=== PATIENT | male | born 1975 | race Caucasian/White ===

== ENCOUNTER 2024-06-05 14:06 | Emergency (ER) | payer MEDICAID, SELFPAY ==
[2024-06-05 14:09] VITALS: BP 130/77; PULSE 64; RESP 15; TEMP 36.3; O2SAT 98
--- NOTE | 2024-06-05 14:30 | DI.CT_ITS ---
Exam(s) CT LUMBAR SPINE WO EXAM: CT LUMBAR SPINE WO CLINICAL HISTORY: L4 right sided chronic spine pain. TECHNIQUE: Imaging Protocol: Axial computed tomography images with coronal and sagittal reformatted images were created and reviewed COMPARISON: There are no plain films available time of this interpretation. FINDINGS: Bones: There are no acute fractures, listhesis, nor pars defects. There are no lytic nor blastic oss eous lesions evident.There is a mild deformity of the left transverse process of L3 which may be rela kenny to healed fracture. Other transverse processes appear unremarkable. No disc space narrowing. No significant facet arthropathy. INDIVIDUAL LEVELS: T12-L1:No disc herniation nor canal stenosis. Facet joints unremarkable. No foraminal stenosis. L1-2: No disc herniation nor canal stenosis. Facet joints unremarkable. No foraminal stenosis. L2-3: No disc herniation nor canal stenosis. Facet joints unremarkable. There is mild central shila l stenosis related to mild annular bulging and short AP dimensions of the pedicles. No significant f oraminal stenosis. L3-4: No disc herniation nor canal stenosis. Facet joints unremarkable. Central canal dimensions ar e lower normal. No foraminal stenosis. L4-5: Normal disc height. No disc herniation or central canal stenosis. No facet arthropathy. No significant foraminal stenosis. L5-S1: No disc herniation or canal stenosis. Facet joints unremarkable. No central canal stenosis. No foraminal stenosis. The visualized sacroiliac joints and sacrum appear unremarkable. PARASPINAL SOFT TISSUES: Visualized paraspinal tissues appear unremarkable. IMPRESSION: 1. No evidence of disc herniation nor severe spinal canal stenosis nor significant foraminal stenosis . No facet arthropathy. RADIATION DOSE DELIVERED: 542.94mGy.cm Total DLP DATA REPOSITORY: All CT scans at this facility are submitted to the National Radiology Data Registry (NRDR) Dose Index Registry (DIR) with the [employer] (A[employer]). RADIATION OPTIMIZATION: All CT scans at this facility use at least one of these dose optimization te chniques: automated exposure control; mA and/or kV adjustment per patient size (includes targeted exa ms where dose is matched to clinical indication); or iterative reconstruction.
[2024-06-05] MEDS: Acetaminophen 500 MG TAB 1000 MG PO (14:43)
[2024-06-05] MEDS: predniSONE 20 MG TAB 60 MG PO (14:43)
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
--- NOTE | 2024-06-05 16:39 | DI.VRAD_ITS ---
PROCEDURE INFORMATION: Exam: CT Lumbar Spine Without Contrast Exam date and time: 06/05/2024 3:10 PM Age: 49 years old Clinical indication: Other: L4 right sided chronic spine pain TECHNIQUE: Imaging protocol: Computed tomography of the lumbar spine without contrast. COMPARISON: No relevant prior studies available. FINDINGS: Bones/joints: Vertebral body height well preserved. Spinal alignment is anatomic. There is mild broad-based disc bulge at the L1-L2 level. Similar changes seen at the L2-L3 level. The pedicles appear congenitally shortened, anatomic variant. There is mild stenosis at L2-L3 and L3-L4. Mild disc bulge noted L3-L4. There is mild foraminal narrowing at the L2-L3 and L3-L4 levels. Spleen: Splenic calcification, probable old granulomatous change. Vasculature: Mild atherosclerotic change noted in the vasculature. Soft tissues: Unremarkable. IMPRESSION: Congenitally diminutive pedicles. Minimal spondylosis with mild stenosis L2-L3 and L3-L4. Dictated and Authenticated by: Cary Araya MD. Ordering:TANMAY Renteria MD
== END 2024-06-05 18:04 | disposition home or self-care (01) ==
PROVIDERS: Emergency Provider Student in an Organized Health Care Education/Training Program
DX: M54.50 Low back pain, unspecified (principal); G20.C Parkinsonism, unspecified; M47.816 Spondylosis without myelopathy or radiculopathy, lumbar region
CPT/HCPCS: 99284; 72131; J7512

== ENCOUNTER 2024-09-29 17:07 | Emergency (ER) | payer MEDICAID, SELFPAY ==
[2024-09-29 17:08] VITALS: BP 140/71; PULSE 108; RESP 20; TEMP 39.2; O2SAT 95
--- NOTE | 2024-09-29 17:15 | DI.RAD_ITS ---
Exam(s) XR CHEST 2V PA LATERAL EXAM: XR CHEST 2V PA LATERAL CLINICAL HISTORY: fever and cough. TECHNIQUE: 2D digital imaging was performed. COMPARISON: No exams were available for comparison FINDINGS: 2 views: Right anterior chest wall pacer device with leads heading cephalad towards the brain. Heart size is normal. The mediastinum is not widened. Lungs are clear. No infiltrates nor pleural effusions. IMPRESSION: No acute pulmonary findings. DATA REPOSITORY: RADIATION DOSE DELIVERED:
--- NOTE | 2024-09-29 17:21 | ED.GENADUL_ITS ---
Discharge Plan Disposition Patient Disposition: Home Condition: Stable Discharge Details Clinical Impression: Fever, Cough, Influenza A Primary Care Provider: None,None ED Provider: Juan Gonzalez Home Meds and New Rx's Prescriptions: New oseltamivir 75 mg capsule 75 mg PO Q12H 5 Days Qty: 9 0RF prednisone 20 mg tablet 60 mg PO DAILY 4 Days Qty: 12 0RF Continued carbidopa-levodopa 25-100 mg tablet 1 tab PO 12XD PRN Patient Comments: TAKE 1 AND 1/2 TABLETS BY MOUTH EVERY 1 TO 1 AND 1/2 HOURS NEEDED FOR PARKINSONS Rx Instructions: 1 tab orally; albuterol sulfate [Ventolin HFA] 90 mcg/actuation HFA aerosol inhaler 2 puff INHALATION Q4H PRN Patient Comments: INHALE 2 PUFFS BY MOUTH EVERY 4-6 HOURS NEEDED lidocaine [Lidoderm] 5 % adhesive patch,medicated 1 patch Topical Q24H Qty: 15 0RF Discharge Instructions Additional Instructions: You are positive for the flu. Take the steroid and oseltamivir as prescribed. You can continue to use your inhaler as needed. If you are not improving within a week follow-up with either your primary care provider or express care. If you feel more ill or have severe worsening shortness of breath return to the emergency department for reevaluation HPI General Mode of arrival: ambulatory . Date/Time Provider Initiated Documentation: 09/29/24 17:14 . Limitations to Documentation: no limitations . Information obtained by: patient . History of Present Illness 49 year old M presents to the emergency department with the chief complaint of fever, cough, dyspnea, described as moderate, Patient started experiencing this day(s) (1) and it has been constant. No relieving factors improve symptom(s), No exacerbating factors reported . Patient notes denies nausea/vomiting. Patient did receive the following treatments prior to arrival, none Related Data Home Medications ?Medication ?Instructions ?Recorded ?Confirmed albuterol sulfate 90 mcg/actuation 2 puff inhalation Q4H PRN 06/05/24 09/29/24 aerosol inhaler (Ventolin HFA) carbidopa 25 mg-levodopa 100 mg 1 tab PO 12XD PRN 06/05/24 09/29/24 tablet lidocaine 5 % topical patch 1 patch topical Q24H #15 ea 06/05/24 09/29/24 (Lidoderm) oseltamivir 75 mg capsule 75 mg PO Q12H 5 days #9 caps 09/29/24 prednisone 20 mg tablet 60 mg (3 x 20 mg) PO DAILY 4 days 09/29/24 #12 tabs Previous Rx's ?Medication ?Instructions ?Recorded lidocaine 5 % topical patch 1 patch topical Q24H #15 ea 06/05/24 (Lidoderm) oseltamivir 75 mg capsule 75 mg PO Q12H 5 days #9 caps 09/29/24 prednisone 20 mg tablet 60 mg (3 x 20 mg) PO DAILY 4 days 09/29/24 #12 tabs Allergies Allergy/AdvReac Type Severity Reaction Status Date / Time phenobarbital Allergy Severe Other (See Unverified 09/29/24 17:12 Comment) General Stated Complaint: RespSymp MARILU: 3 Review of Systems All systems reviewed & are unremarkable except as noted in HPI and below Constitutional Constitutional: Reports chills, Reports fever(s) and Denies weakness Cardiovascular Cardiovascular: Denies chest pain and Reports dyspnea Respiratory Respiratory: Reports cough and Reports dyspnea Gastrointestinal Gastrointestinal: Denies abdominal pain, Denies nausea and Denies vomiting Neurologic Neurologic: Denies weakness Exam Const General: no acute distress Orientation: alert [facility] Head: normal to inspection Ears: external ears normal General nose exam: external nose normal Mouth: moist mucous membranes Eyes General: appearance normal, both eyes and all related structures Neck Neck: normal visual inspection Resp Auscultation: rhonchi and wheezes Cardio Jugular venous pressure: no JVD Rate: regular rate Heart Sounds: no murmurs GI Palpation: soft and nontender Skin General skin exam: no rashes or lesions noted Neuro General: patient alert and patient oriented x3 Extrem General: normal to inspection Psych Mental Status: mental status grossly normal Course Vital Signs Vital signs: Vital Signs Temperature 39.2 C H 09/29/24 17:08 Pulse 108 H 09/29/24 17:08 Respiratory Rate 09/29/24 17:08 Blood Pressure 140/71 09/29/24 17:08 Pulse Oximetry 95 09/29/24 17:08 Temperature 39.2 C H 09/29/24 17:08 Temperature Source Oral 09/29/24 17:08 Pulse 108 H 09/29/24 17:08 Respiratory Rate 20 09/29/24 17:08 Blood Pressure 140/71 09/29/24 17:08 Pulse Oximetry 95 09/29/24 17:08 Oxygen Delivery Method Room Air 09/29/24 17:08 Oxygen Flow Rate 0 09/29/24 17:08 Medical Decision Making 49-year-old male with a history of Parkinson's and chronic smoker comes in with chief complaint of 1 day of productive cough and fevers. States he also has some shortness of breath, denies any chest pressure. Denies any IV drug use or recent travel. He is speaking full sentences on exam with an intermittent harsh sounding cough. He has apical wheezing bilaterally and rhonchi at the bases bilaterally. He has noted to be febrile to 39.2 on arrival. He has no JVD or leg swelling or calf tenderness. Given his symptoms I suspect a respiratory infection, will check a CBC CMP and procalcitonin, given his lung exam findings as chronic smoking I will treat him with a DuoNeb and prednisone and also given Tylenol and ibuprofen. Will also obtain chest x-ray to evaluate for pneumonia and also obtain a Fluvid. He denies any IV drug use and has no murmurs or other findings to suggest endocarditis. X-ray and blood work shows no concerning findings other than low magnesium which was repleted orally. He is positive for the flu. Given his symptoms started yesterday we will start him on oseltamavir. He is stable for discharge and advised to follow-up with his PCP if not improving within a week and return precautions given Differential Diagnosis Differential Diagnosis: COVID, flu, pneumonia Lab Data Lab results reviewed: Yes I reviewed the patient's lab results. Quality:[facility] Health Related Social Needs: No Data to Display PFSH All Active Problems (Updated 09/29/24 @ 19:15 by Juan Gonzalez MD) Influenza A (Acute) Cough (Acute) Fever (Acute) Social History Smoking risk assessment performed?: No
[2024-09-29] MEDS: Acetaminophen 500 MG TAB 1000 MG PO (17:32)
[2024-09-29] MEDS: Albuterol/Ipratropium 3 ML UPD VIAL UPD (17:32)
[2024-09-29] MEDS: Ibuprofen 600 MG TAB PO (17:33)
[2024-09-29] MEDS: predniSONE 20 MG TAB 60 MG PO (17:33)
[2024-09-29 17:44] LABS: Abs Immature Grans 0.03 10^3/uL (0.0-0.06); Absolute Basophil Count 0.03 10^3/uL (0.0-0.2); Absolute Monocyte Count 0.57 10^3/uL (0.1-0.8); Basophils % 0.4 %; HCT 38.8 % (40.0-50.0); HGB 13.4 g/dL (13.5-17.5); Immature Grans % 0.4 %; Lymphocytes % 8.5 %; MCH 30.4 pg (27.0-33.0); MCHC 34.5 % (32.0-36.0); MCV 88 fL (80-95); MPV 9.5 fL (8.0-11.0); Monocytes % 8.1 %; Neutrophils % 82.6 %; Platelet Count 179 10^3/uL (130-400); RBC 4.41 10^6/uL (4.36-5.78); RDW 12.3 % (11.8-14.1); RDW-SD 40.1 fL; WBC 7.03 10^3/uL (4.4-10.8)
[2024-09-29 17:54] LABS: BE (Venous) -1 mmol/L (-2-3); HCO3 (Venous) 24 mmol/L (23-28); O2 Sat (Venous) 76 %; TCO2 (Venous) 21 mmol/L (24-29); pCO2 (Venous) 37 mmHg (41-51); pH (Venous) 7.42 (7.31-7.41); pO2 (Venous) 38 mmHg
[2024-09-29 18:04] LABS: ALT 10 U/L (16-63); AST 13 U/L (15-37); Albumin 3.8 g/dL (3.4-5.0); Alkaline Phosphatase 68 U/L (46-116); Anion Gap 8.9 mmol/L (3-11); BUN 12 mg/dL (7-18); Bilirubin, Total 0.75 mg/dL (0.2-1.0); CO2 23.1 mmol/L (21.0-32.0); CREATININE 0.8 mg/dL (0.70-1.30); Calcium 8.7 mg/dL (8.5-10.1); Chloride 104 mmol/L (98-107); Estimated GFR 109.85 (mL/min/1.73m2); Glucose 105 mg/dL (74-106); Magnesium 1.3 mg/dL (1.8-2.4); Potassium 3.6 mmol/L (3.5-5.1); Sodium 136 mmol/L (136-145); Total Protein 6.9 g/dL (6.4-8.2)
[2024-09-29 18:16] LABS: Procalcitonin < 0.10 ng/mL
[2024-09-29] MEDS: Ondansetron O.D.T. 4 MG TABEF PO (18:30)
[2024-09-29] MEDS: Magnesium Oxide 400 MG TAB 800 MG PO (18:30)
[2024-09-29 18:35] VITALS: BP 119/59; PULSE 87; RESP 20; TEMP 37.5; O2SAT 93
[2024-09-29 19:02] LABS: COVID-19 PCR Negative (Negative); Influenza A PCR Positive (Negative); Influenza B PCR Negative (Negative); RSV PCR Negative (Negative)
[2024-09-29 19:03] LABS: Source Nasopharynx
[2024-09-29] MEDS: Oseltamivir 75 MG CAP PO (19:38)
[2024-09-29 19:44] VITALS: BP 115/82; PULSE 102; RESP 18; TEMP 37.5; O2SAT 94
== END 2024-09-29 19:44 | disposition home or self-care (01) ==
PROVIDERS: Emergency Provider Emergency Medicine
DX: J10.1 Influenza due to other identified influenza virus with other respiratory manifestations (principal); E83.42 Hypomagnesemia; F17.200 Nicotine dependence, unspecified, uncomplicated; Z95.0 Presence of cardiac pacemaker
CPT/HCPCS: 80053; 82805; 84145; 87637; 94640; 99284; 71046; 83735; 85025; J7512; J7620

== ENCOUNTER 2024-10-06 00:37 | Emergency (ER) | payer MEDICAID, SELFPAY ==
[2024-10-06 00:37] VITALS: BP 104/60; PULSE 82; RESP 18; TEMP 36.8; O2SAT 98
[2024-10-06 00:45] VITALS: PULSE 73; RESP 18; O2SAT 97
--- NOTE | 2024-10-06 00:56 | W.ED.GENAD ---
Discharge Plan Disposition Patient Disposition: Home Condition: Good Discharge Details Clinical Impression: Pneumonia of both lower lobes Primary Care Provider: None,None ED Provider: Saji Davis and New Rx's Prescriptions: New benzonatate 100 mg capsule 100 mg PO TID PRN (Reason: cough) Qty: 15 0RF azithromycin 250 mg tablet 250 mg PO DAILY Qty: 4 0RF cefpodoxime 200 mg tablet 200 mg PO BID Qty: 14 0RF Rx Instructions: must administer with a meal/food ibuprofen 600 mg tablet 600 mg PO TID PRN (Reason: fever or pain) Qty: 15 0RF Continued carbidopa-levodopa 25-100 mg tablet 1 tab PO 12XD PRN Patient Comments: TAKE 1 AND 1/2 TABLETS BY MOUTH EVERY 1 TO 1 AND 1/2 HOURS NEEDED FOR PARKINSONS Rx Instructions: 1 tab orally; albuterol sulfate [Ventolin HFA] 90 mcg/actuation HFA aerosol inhaler 2 puff INHALATION Q4H PRN Patient Comments: INHALE 2 PUFFS BY MOUTH EVERY 4-6 HOURS NEEDED lidocaine [Lidoderm] 5 % adhesive patch,medicated 1 patch Topical Q24H Qty: 15 0RF Discontinued oseltamivir 75 mg capsule 75 mg PO BID Patient Comments: TAKE ONE CAPSULE BY MOUTH EVERY 12 HOURS FOR 5 DAYS Discharge Instructions Instructions: Pneumonia, Adult ED Additional Instructions: You were seen for continued cough and trouble breathing despite finishing your Tamiflu. Chest x-ray shows evidence of bilateral pneumonia in the bases. Your laboratory studies, vital signs, exam otherwise are reassuring. 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 You should follow-up with your primary care physician next week for recheck. Return to ED for any increasing shortness of breath, chest pain, lethargy or neurologic change, persistent vomiting, other concerns. HPI General Mode of arrival: EMS. Date/Time Provider Initiated Documentation: 10/06/24 00:50. Limitations to Documentation: no limitations. Information obtained by: patient and RN notes reviewed. HPI Narrative: Patient presents to ED by ambulance with complaint of chest pain and shortness of breath. Patient diagnosed with influenza and has been taking Tamiflu. Denies having any fevers recently. Is having anterior chest pain and shortness of breath with inability to catch his breath due to coughing fits. He denies having shortness of breath at rest. He denies having chest pain at rest. Symptoms happen when he begins coughing and then he cannot stop which makes it worse. Denies shortness of breath with lying flat to me, though stated this to nursing. He is eating and drinking normally. He is still smoking. Denies any back pain. Has not taking anything at home for cough or pain because he reports not having anything there to take. Related Data Home Medications ?Medication ?Instructions ?Recorded ?Confirmed albuterol sulfate 90 mcg/actuation 2 puff inhalation Q4H PRN 06/05/24 10/06/24 aerosol inhaler (Ventolin HFA) carbidopa 25 mg-levodopa 100 mg 1 tab PO 12XD PRN 06/05/24 10/06/24 tablet lidocaine 5 % topical patch 1 patch topical Q24H #15 ea 06/05/24 10/06/24 (Lidoderm) azithromycin 250 mg tablet 250 mg PO DAILY #4 tabs 10/06/24 benzonatate 100 mg capsule 100 mg PO TID PRN cough #15 caps 10/06/24 cefpodoxime 200 mg tablet 200 mg PO BID #14 tabs 10/06/24 ibuprofen 600 mg tablet 600 mg PO TID PRN fever or pain 10/06/24 #15 tabs Previous Rx's ?Medication ?Instructions ?Recorded lidocaine 5 % topical patch 1 patch topical Q24H #15 ea 06/05/24 (Lidoderm) azithromycin 250 mg tablet 250 mg PO DAILY #4 tabs 10/06/24 benzonatate 100 mg capsule 100 mg PO TID PRN cough #15 caps 10/06/24 cefpodoxime 200 mg tablet 200 mg PO BID #14 tabs 10/06/24 ibuprofen 600 mg tablet 600 mg PO TID PRN fever or pain 10/06/24 #15 tabs Allergies Allergy/AdvReac Type Severity Reaction Status Date / Time phenobarbital Allergy Severe Other (See Verified 10/06/24 00:43 Comment) General Stated Complaint: RespSymp MARILU: 3 Exam Narrative Exam Narrative: Const: WDWN male in NAD. VS per triage. HEENT: NC/AT. Normal facial exam. Neck: Supple. Trachea midline. Lungs: Normal respiratory effort. Lungs are clear. Chest wall tenderness (mild) parasternal bilateral Cor: RRR without murmur. Good radial pulses. Neuro: A+O x 3. Normal speech, mentation. Cranial nerves II - XII grossly intact. No gross motor or sensory deficit. Tremor bilateral upper extremities Course Vital Signs Vital signs: Vital Signs Temperature 98.3 F 10/06/24 00:37 Pulse 82 10/06/24 00:37 Respiratory Rate 18 10/06/24 00:37 Blood Pressure 104/60 10/06/24 00:37 Pulse Oximetry 98 10/06/24 00:37 Temperature 98.3 F 10/06/24 00:37 Pulse 73 10/06/24 00:45 Respiratory Rate 18 10/06/24 00:45 Respiratory Effort Short of Breath 10/06/24 00:45 Respiratory Depth Normal 10/06/24 00:45 Blood Pressure 104/60 10/06/24 00:37 Blood Pressure Position Sitting 10/06/24 00:45 Pulse Oximetry 97 10/06/24 00:45 Oxygen Delivery Method Room Air 10/06/24 00:45 Oxygen Flow Rate 0 10/06/24 00:37 Pain Level 97 10/06/24 00:45 Medical Decision Making Patient here on the and diagnosed with influenza. Reports no recent fever. Complaining of coughing fits which is causing shortness of breath, inability to catch his breath, anterior chest pain. He is a smoker and continues to smoke. His vital signs are normal. Saturations are normal. Lungs are clear to auscultation on my exam. Has not taken anything [id number] for his symptoms. Denies having chest pain or shortness of breath if he is not having a coughing fit. Will give him Tessalon and ketorolac for his symptoms. Will obtain a chest x-ray to rule out a superimposed pneumonia. Patient does report improvement after medications. Cough is less and pain is definitely better. Chest x-ray per my read as well as preliminary radiology read with bibasilar infiltrates. Though his vital signs and saturations look good elected to place IV and check laboratory studies as well as give a dose of IV ceftriaxone and oral azithromycin. His labs show minor clinically insignificant abnormalities. Potassium low at 3.3 and replenished. Otherwise white count, hemoglobin, kidney function look good. I think he has therefore stable for discharge home on oral antibiotics to include continued azithromycin and cefpodoxime. Will also provide prescription for benzonatate. Instructed to follow-up with primary care this coming week for recheck. Return precautions provided. Imaging Data Radiologic Study: Attestation: I personally reviewed and interpreted this imaging study as follows: Imaging: X-Ray My impression: Chest x-ray with bibasilar infiltrates Lab Data Lab results reviewed: Yes I reviewed the patient's lab results. Lab results narrative: see MDM PFS All Active Problems (Updated 10/06/24 @ 03:12 by Saji Davis MD) Pneumonia of both lower lobes (Acute) Influenza A (Acute) Cough (Acute) Fever (Acute) Medical History (Updated 10/06/24 @ 03:12 by Saji Davis MD) Parkinson's disease Surgical History (Updated 10/06/24 @ 03:11 by Saji Davis MD) S/P deep brain stimulator placement Social History Smoking/Tobacco Use Status: Current every day Tobacco Type: cigarettes Smoking risk assessment performed?: Yes Alcohol Intake: never Substance use type: does not use
[2024-10-06] MEDS: Ketorolac 30 MG/ML VIAL IM (01:01)
[2024-10-06] MEDS: Benzonatate 100 MG CAP PO (01:01)
--- NOTE | 2024-10-06 01:43 | DI.RAD_ITS ---
Exam(s) XR CHEST 2V PA LATERAL EXAM: XR CHEST 2V PA LATERAL CLINICAL HISTORY: cough, CP/SOB TECHNIQUE: 2D digital imaging was performed. Two views. COMPARISON: CR XR CHEST 2V PA LATERAL from 09/29/2024 FINDINGS: Exam is somewhat limited by stimulator lead battery pack overlying the right mid lung field. HEART: Normal size. Aorta: Not dilated. PULMONARY VASCULATURE: Normal. MEDIASTINUM: Unremarkable. LUNGS: Bibasilar infiltrates, left greater than right. Lingular infiltrate is the most stents. PLEURAL SPACE: No pleural effusion or pneumothorax. BONE:Unremarkable for age. SOFT TISSUES: Unremarkable. IMPRESSION: Bibasilar pneumonia, left greater than right. DATA REPOSITORY: RADIATION DOSE DELIVERED:
--- NOTE | 2024-10-06 02:26 | DI.VRAD_ITS ---
PROCEDURE INFORMATION: Exam: XR Chest Exam date and time: 10/06/2024 1:35 AM Age: 49 years old Clinical indication: Cough and shortness of breath; Chest pressure; Prior surgery; Surgery date: 6+ months; Surgery type: Neruo stim; Chest pain, cough, SOB flu a+ TECHNIQUE: Imaging protocol: Radiologic exam of the chest. Views: 2 views. COMPARISON: CR XR CHEST 2V PA LATERAL 09/29/2024 5:59 PM FINDINGS: Tubes, catheters and devices: Stimulator lead battery pack overlies the right mid lung zone. Lead score cephalad in the right neck. Lungs: Mild peribronchial thickening bilaterally. Patchy bilateral lower lobe infiltrates , left side more than right. Pleural spaces: Unremarkable. No pleural effusion. No pneumothorax. Heart/Mediastinum: Unremarkable. No cardiomegaly. Bones/joints: Unremarkable. IMPRESSION: Bibasilar pneumonia , left side more than right. Dictated and Authenticated by: Lilian Durán MD. Orderin Ryan Lennon MD
[2024-10-06] MEDS: cefTRIAXone 1 GM/50 ML BAG IVPB (02:28)
[2024-10-06] MEDS: Azithromycin 250 MG TAB 500 MG PO (02:29)
[2024-10-06 02:32] LABS: Abs Immature Grans 0.01 10^3/uL (0.0-0.06); HCT 39.9 % (40.0-50.0); HGB 14.2 g/dL (13.5-17.5); MCH 30.5 pg (27.0-33.0); MCHC 35.6 % (32.0-36.0); MCV 86 fL (80-95); MPV 9.8 fL (8.0-11.0); Platelet Count 173 10^3/uL (130-400); RBC 4.66 10^6/uL (4.36-5.78); RDW 11.9 % (11.8-14.1); RDW-SD 37.1 fL; WBC 5.14 10^3/uL (4.4-10.8)
[2024-10-06 02:33] LABS: ALT 14 U/L (16-63); AST 22 U/L (15-37); Albumin 3.1 g/dL (3.4-5.0); Alkaline Phosphatase 64 U/L (46-116); Anion Gap 9.3 mmol/L (3-11); BUN 17 mg/dL (7-18); Bilirubin, Total 1.07 mg/dL (0.2-1.0); CO2 29.7 mmol/L (21.0-32.0); CREATININE 0.7 mg/dL (0.70-1.30); Calcium 8.4 mg/dL (8.5-10.1); Chloride 102 mmol/L (98-107); Estimated GFR 114.37 (mL/min/1.73m2); Glucose 99 mg/dL (74-106); Potassium 3.3 mmol/L (3.5-5.1); Sodium 141 mmol/L (136-145); Total Protein 6.3 g/dL (6.4-8.2)
[2024-10-06 02:41] LABS: Absolute Monocyte Count 0.36 10^3/uL (0.1-0.8); Absolute Neutrophil Count 2.98 10^3/uL (1.2-6.7); Atypical Lymphocytes % 5 %; Diff Comment Manual Differential; RBC Morphology Normal
[2024-10-06] MEDS: Potassium Chloride 20 MEQ TABCR 40 MEQ PO (03:17)
[2024-10-06 03:24] VITALS: BP 110/68; PULSE 88; RESP 18; O2SAT 96
== END 2024-10-06 03:25 | disposition home or self-care (01) ==
PROVIDERS: Emergency Provider Emergency Medicine
DX: J18.9 Pneumonia, unspecified organism (principal); G20.A1 Parkinson's disease without dyskinesia, without mention of fluctuations; F17.210 Nicotine dependence, cigarettes, uncomplicated; Z96.82 Presence of neurostimulator; Z79.899 Other long term (current) drug therapy
CPT/HCPCS: 36415; 80053; 96365; 96372; 99284; 71046; 85025; J0696; J1885

== ENCOUNTER 2025-02-08 10:35 | Emergency (ER) | payer MEDICAID, SELFPAY ==
[2025-02-08 10:39] VITALS: BP 103/73; PULSE 92; RESP 16; TEMP 36.9; O2SAT 93
--- NOTE | 2025-02-08 11:06 | ED.GENADUL_ITS ---
Discharge Plan Disposition Patient Disposition: Home Condition: Good Discharge Details Clinical Impression: Fracture of scaphoid bone of wrist Primary Care Provider: None,None ED Provider: Jennifer Rock Home Meds and New Rx's Prescriptions: Continued carbidopa-levodopa 25-100 mg tablet 1 tab PO 12XD PRN Patient Comments: TAKE 1 AND 1/2 TABLETS BY MOUTH EVERY 1 TO 1 AND 1/2 HOURS NEEDED FOR PARKINSONS Rx Instructions: 1 tab orally; albuterol sulfate [Ventolin HFA] 90 mcg/actuation HFA aerosol inhaler 2 puff INHALATION Q4H PRN Patient Comments: INHALE 2 PUFFS BY MOUTH EVERY 4-6 HOURS NEEDED lidocaine [Lidoderm] 5 % adhesive patch,medicated 1 patch Topical Q24H Qty: 15 0RF ibuprofen 600 mg tablet 600 mg PO TID PRN (Reason: fever or pain) Qty: 15 0RF Discharge Instructions Instructions: Forearm and Wrist Fractures ED Additional Instructions: As we discussed, you did suffer a fracture of your left scaphoid bone. This is concerning as this bone has a limited blood supply so the splint that we are applying less staying on until you are reevaluated by orthopedics. As we discussed we are placing you in a removable one so that you may wash it if you need to but I do encourage that you reapply this is soon as possible. You will need follow-up with orthopedics, please call to schedule follow-up appointment, number listed below. If you develop any new or worsening symptoms, please seek care urgently once again. Referrals: Pedro Luis Garner MD [ [facility] STAFF PHYSICIAN, Orthopaedic Surgical] Discharge Data Discharge Date/Time-TO BE ENTERED AT DEPARTURE: 02/08/25 13:32 [facility] General Date/Time Provider Initiated Documentation: 02/08/25 10:42 . Limitations to Documentation: no limitations . Information obtained by: patient and RN notes reviewed . History of Present Illness 49 year old M presents to the emergency department with the chief complaint of bilateral wrist pain, more on the left than right, after fall, described as moderate, Quality is described as aching, and is localized to the left, right and upper extremity. Patient reports no radiation. Patient started experiencing this day(s) (1 fell last night) and it has been constant. Immobilization improves symptom(s), Movement worsens symptoms . Patient notes no other symptoms.. Patient did receive the following treatments prior to arrival, none Related Data Home Medications ?Medication ?Instructions ?Recorded ?Confirmed albuterol sulfate 90 mcg/actuation 2 puff inhalation Q 4H PRN 06/05/24 02/09/25 aerosol inhaler (Ventolin HFA) carbidopa 25 mg-levodopa 100 mg 1 tab PO 12XD PRN 10/03/0202/09/25 tablet lidocaine 5 % topical patch 1 patch topical Q24H #15 e a 06/05/24 02/09/25 (Lidoderm) ibuprofen 600 mg tablet 600 mg PO TID PRN fever or p ain 10/06/24 02/09/25 #15 tabs Previous Rx's ?Medication ?Instructions ?Recorded lidocaine 5 % topical patch 1 patch topical Q24H #15 e a 06/05/24 (Lidoderm) ibuprofen 600 mg tablet 600 mg PO TID PRN fever or p ain 10/06/24 #15 tabs Allergies Allergy/AdvReac Type Severity Reaction Status Date / Time phenobarbital Allergy Severe Other (See Verified 02/09/25 00:16 Comment) General Stated Complaint: Fall/Non TraumaCriteria MARILU: 3 Review of Systems Constitutional Constitutional: Reports as per HPI, Denies fever(s), Denies headache(s) and Denies weakness ENT Ears, Nose, Mouth, and Throat: Denies headache(s) Cardiovascular Cardiovascular: Reports as per HPI Respiratory Respiratory: Reports as per HPI and Denies cough Musculoskeletal Musculoskeletal: Reports as per HPI and Denies tingling Integumentary/Breasts Skin/Breast: Reports as per HPI Neurologic Neurologic: Reports as per HPI, Denies headache(s), Denies tingling, Denies paresthesias and Denies weakness Exam Const General: cooperative, healthy appearing, comfortable, no acute distress, well developed and well groomed Nutritional Appearance: average body habitus and well nourished Orientation: alert and awake Resp Effort & Inspection: normal respiratory effort, able to speak in complete sentences and no respiratory distress Cardio Rate: regular rate Rhythm: regular rhythm Skin General skin exam: ecchymosis (left anterior wrist) Trauma: abrasion (right radial wrist) Neuro General: patient alert and patient awake Cognition: normal cognition Speech: speech normal Motor: tremor Sensory Exam: no sensory deficits noted Extrem Hand/finger images: 2 1. Area of maximal pain. Mild pain over the snuffbox, pain more along the distal radius. No pain with axial thumb loading of the thumb. No visible deformity. Has ecchymosis along the palmar side at same level. No joint swelling. Full ROM of fingers, wrist, elbow. 2+ distla pulses, sesnation intact. Left wrist is non-tender, full ROM. Has abrasions but no surrounding erythema, warmth, drainage, joint swelling. No snuff box pain on right. Course Vital Signs Vital signs: Vital Signs Temperature 36.9 C 02/08/25 10:39 Pulse 92 H 02/08/25 10:39 Respiratory Rate 16 02/08/25 10:39 Blood Pressure 103/73 02/08/25 10:39 Pulse Oximetry 93 02/08/25 10:39 Temperature 36.9 C 02/08/25 10:39 Temperature Source Oral 02/08/25 10:39 Pulse 92 H 02/08/25 10:39 Respiratory Rate 16 02/08/25 10:39 Blood Pressure 103/73 02/08/25 10:39 Blood Pressure Position Sitting 02/08/25 10:39 Pulse Oximetry 93 02/08/25 10:39 Oxygen Delivery Method Room Air 02/08/25 10:39 Oxygen Flow Rate 0 02/08/25 10:39 Pain Level 6 02/08/25 10:39 Medical Decision Making Patient is a pleasant 49-year-old [id number] male past medical history significant for Parkinson's disease, who presented with chief complaint of bilateral wrist pain. He reports that yesterday, he had his right leg lock up which he states is typical with his Parkinson's causing him to propel forward and fall into some bushes. He landed with his upper extremities extended outward trying to catch himself and suffered injury to both wrists with particular on the left side. He reports that the right side has suffered some abrasions from the [place] but otherwise he is not having pain with movement. He has no numbness or tingling in either hands. He states that his tetanus is up-to-date. He states that the left wrist however, has continued to have some discomfort and he has been having difficulty with movement of this wrist. Patient denies other injury at the time of the incident. Denies strike his head, denies any loss of consciousness. No new neck or back pain. On exam, patient appears nontoxic. Is hemodynamically stable and resting comfortably no acute distress. Patient does have a cane and walks assisted but states that he typically has this in his right hand. Exam of the right wrist shows to be full range of motion. Neurovascularly intact. He does have some abrasions along the ulnar side but no evidence to suggest infection. Exam of the left wrist significant for radial sided discomfort. He does have good range of motion and 5 out of 5 care connector strength equal to that of the right side. Again, no neurovascular compromise. 2+ distal pulses. He has full range of motion of all his fingers and no pain with palpation in either hand or elbow. He does have some point tenderness over the snuffbox but no pain with axial loading of the thumb. Does have some ecchymosis over the distal radius. Will obtain x-ray of the patient's left wrist. It seems that the right wrist is more discomfort associated with abrasions. Tetanus is up-to-date per patient. He did take ibuprofen this morning, we will augment this with Tylenol. Will ensure to obtain a navicular view based on the location of tenderness. X-rays reviewed by radiologist, nondisplaced fracture of the distal pole of the navicular bone. Patient placed in a thumb spica. We discussed to the concern of these type of fractures and I encourage close follow-up. Will place on the referral list for orthopedics. Encouraged supportive care including rest, ice, elevation. Tylenol and ibuprofen as needed for discomfort. Had initially plan to patient the patient in a formal thumb spica contoured to the patient but based on his Parkinson's, living situation and further discussion with the patient, I believe he will be more compliant with a removable Velcro splint that he can rinse off if needed and then reapply. Patient is currently homeless, we did call the [facility] as there is concern for him potentially losing his bed last night as the fall caused him to miss curfew. Patient reports he will be compliant with splint. Encoruaged RICE. Return pecautions discussed. All of his questions and concerns were addressed, he is in agreement with this plan. Quality:SDOH Health Related Social Needs: 2 Health related social needs food insecurity transpo in security material hardship house/econ circumstance lonely/isolated Health related social needs details lacks secure housi and transportation. PFSH All Active Problems (Updated 02/09/25 @ 05:38 by Saji Davis MD) Elevated LFTs (Acute) Dehydration with hyponatremia (Acute) Chest pain (Acute) Fracture of scaphoid bone of wrist (Acute) Medical History Parkinson's disease Surgical History S/P deep brain stimulator placement Social History Smoking/Tobacco Use Status: Current every day Tobacco Type: cigarettes Years smoked: 38 Smoking risk assessment performed?: Yes Alcohol Intake: never Drug use: Occasionally Substance use type: marijuana Housing: homeless Do you feel safe at home: Yes Do you feel safe in your relationship?: Yes Additional Social history: In [facility].
[2025-02-08] MEDS: Acetaminophen 500 MG TAB 1000 MG PO (11:27)
--- NOTE | 2025-02-08 11:49 | DI.RAD_ITS ---
Exam(s) XR WRIST LT COMP NAVICULAR EXAM: XR WRIST LT COMP NAVICULAR CLINICAL HISTORY: FOOSH. TECHNIQUE: 2D digital imaging was performed. Three views. COMPARISON: No exams were available for comparison FINDINGS: BONES: Lucency seen in the distal, lateral pole of the navicular on the navicular view, suspicious for nondisplaced fracture. Hip a corticated bony fragment is noted near the radial styloid likely related to remote trauma. No bony destructive lesion is seen. JOINTS: The carpal bones are normally aligned. SOFT TISSUE: Normal. IMPRESSION: Nondisplaced fracture of the distal pole of the navicular. DATA REPOSITORY: RADIATION DOSE DELIVERED:
[2025-02-08 13:28] VITALS: BP 119/67; PULSE 88; RESP 16; O2SAT 98
== END 2025-02-08 13:32 | disposition home or self-care (01) ==
PROVIDERS: Emergency Provider Physician Assistant
DX: S62.015A Nondisplaced fracture of distal pole of navicular [scaphoid] bone of left wrist, initial encounter for closed fracture (principal); G20.A1 Parkinson's disease without dyskinesia, without mention of fluctuations; F17.210 Nicotine dependence, cigarettes, uncomplicated; Z96.82 Presence of neurostimulator; Z59.00 Homelessness unspecified
CPT/HCPCS: 99283; 73110

== ENCOUNTER 2025-02-09 00:11 | Emergency (ER) | payer MEDICAID, SELFPAY ==
[2025-02-09] VITALS (14 sets, daily range): BP systolic 135; BP diastolic 82; PULSE 74–88; RESP 15–20; O2SAT 98
--- NOTE | 2025-02-09 | RT.EKG_ITS ---
APPROVED REPORT Exam: Resting ECG Reason for Exam: chest pain Patient Location: E HR:74 bpm ECG Measurements Heart Rate 74 AXIS IA 137 P 89 QRSd 104 QRS 84 QT 391 T 172 QTc 434 Conclusion Sinus rhythm...normal P axis, V-rate 60- 99 Right atrial enlargement...P>0.25mV 2 lds or<-0.24mV aVR/aVL Probable left ventricular hypertrophy...multiple LVH criteria Abnormal T, probable ischemia, lateral leads...T <-0.50mV, I aVL V5 V6 ST elev, probable normal early repol pattern...ST elevation, age<55 NSR at 74 Artifact due to DBS Normal [place]/Interval Inverted T waves lateral limb leads No acute ST changes
--- NOTE | 2025-02-09 00:16 | W.ED.GENAD ---
Discharge Plan Disposition Patient Disposition: Home Condition: Improving Discharge Details Clinical Impression: Chest pain, Dehydration with hyponatremia, Elevated LFTs Primary Care Provider: None,None ED Provider: Saji Davis [place] Meds and New Rx's Prescriptions: No Action carbidopa-levodopa 25-100 mg tablet 1 tab PO 12XD PRN Patient Comments: TAKE 1 AND 1/2 TABLETS BY MOUTH EVERY 1 TO 1 AND 1/2 HOURS NEEDED FOR PARKINSONS Rx Instructions: 1 tab orally; albuterol sulfate [Ventolin HFA] 90 mcg/actuation HFA aerosol inhaler 2 puff INHALATION Q4H PRN Patient Comments: INHALE 2 PUFFS BY MOUTH EVERY 4-6 HOURS NEEDED lidocaine [Lidoderm] 5 % adhesive patch,medicated 1 patch Topical Q24H Qty: 15 0RF ibuprofen 600 mg tablet 600 mg PO TID PRN (Reason: fever or pain) Qty: 15 0RF Discharge Instructions Instructions: Chest Pain, Adult ED, Dehydration, Adult ED Additional Instructions: You were seen in the ED for chest pain which thankfully does not appear to be cardiac in nature. You had some pretty significant laboratory abnormalities that suggested dehydration which improved after 2 L of IV fluid. Imaging studies overall show no acute process. There are some nonacute findings that may need to be addressed by your PCP and you should have labs rechecked so please follow-up in the next 1 or 2 weeks. You should return to the ED if you develop any new or worsening chest pain, syncope, shortness of breath, abdominal pain, other concerns. HPI General Mode of arrival: EMS. Date/Time Provider Initiated Documentation: 02/09/25 00:16. Limitations to Documentation: no limitations. Information obtained by: patient. HPI Narrative: Patient presents to ED with onset of chest pain about 2 hours ago. Pain is left substernal with maybe some radiation into the shoulder and neck. Had developed a little bit of a cough this morning and has some mild shortness of breath not necessarily worse with the chest pain. He has no fever that he is aware of. Denies any abdominal pain, vomiting or diarrhea. He does smoke cigarettes. He reports having a mild heart attack about 5 years ago related to what sounds like a possible hypertensive emergency as opposed to actual CAD. This occurred in [place] so there were no old records to review from here. He denies any drug or alcohol use. He does have a history of Parkinson's and has a deep brain stimulator. He has had no abdominal surgeries in the past. Related Data Home Medications ?Medication ?Instructions ?Recorded ?Confirmed albuterol sulfate 90 mcg/actuation 2 puff inhalation Q4H PRN 06/05/24 02/09/25 aerosol inhaler (Ventolin HFA) carbidopa 25 mg-levodopa 100 mg 1 tab PO 12XD PRN 06/05/24 02/09/25 tablet lidocaine 5 % topical patch 1 patch topical Q24H #15 ea 06/05/24 02/09/25 (Lidoderm) ibuprofen 600 mg tablet 600 mg PO TID PRN fever or pain 10/06/24 02/09/25 #15 tabs Previous Rx's ?Medication ?Instructions ?Recorded lidocaine 5 % topical patch 1 patch topical Q24H #15 ea 06/05/24 (Lidoderm) ibuprofen 600 mg tablet 600 mg PO TID PRN fever or pain 10/06/24 #15 tabs Allergies Allergy/AdvReac Type Severity Reaction Status Date / Time phenobarbital Allergy Severe Other (See Verified 02/09/25 00:16 Comment) General Stated Complaint: Chest Pain MARILU: 3 Exam Narrative Exam Narrative: Const: WDWN male in NAD. VS per triage. HEENT: NC/AT. Normal facial exam. Neck: Supple. Trachea midline. Lungs: Normal respiratory effort. Lungs are clear. No chest wall tenderness. Cor: RRR without murmur. Good radial pulses. GI: Soft/ND/NT. Neuro: A+O x 3. Normal speech, mentation, gait. Cranial nerves II - XII grossly intact. No gross motor or sensory deficit. Ext: No C/C/E. No calf tenderness. Course Vital Signs Vital signs: Vital Signs Pulse 74 02/09/25 00:12 Respiratory Rate 18 02/09/25 00:12 Blood Pressure 135/82 02/09/25 00:12 Pulse Oximetry 98 02/09/25 00:12 Pulse 74 02/09/25 00:12 Respiratory Rate 18 02/09/25 00:12 Blood Pressure 135/82 02/09/25 00:12 Pulse Oximetry 98 02/09/25 00:12 Oxygen Delivery Method Room Air 02/09/25 00:12 Oxygen Flow Rate 0 02/09/25 00:12 Medical Decision Making Patient presenting to ED with complaint of chest pain. Reports some radiation to left shoulder and neck though minimal. Feels a little short of breath and reports a new slight cough. Denies any GI complaints. Was transported by ambulance but did not receive aspirin or nitro. EKG on arrival shows sinus rhythm with significant artifact due to his deep brain stimulator. He does have inverted T waves in 1 and aVL but otherwise no acute ST changes. He is low risk for PE and can be PERC'd out. This is not likely dissection. Cannot rule out ACS at this point so we will give aspirin and nitroglycerin. Laboratory studies and chest x-ray ordered. Patient reports that the nitroglycerin gave him a headache but really did not do much for the chest pain. Laboratories are significant for white count of 17.5 with a normal differential and normal hemoglobin. His initial troponin is negative. His chemistries are little concerning as he has evidence of LAURA with a BUN of 63 and a creatinine of 1.5, mild hyponatremia at 131. He also has elevated liver function with a total bili of 2.4 and an AST of 237 but an ALT of 20. Patient reports that he has been drinking plenty of fluids though he admits urine is dark yellow. Continues to deny abdominal pain but seems to wince whenever I press on the right upper quadrant. May be able to explain the LAURA with dehydration and not drinking enough in the hot weather but cannot necessarily explain the elevated white count and liver function. Consider possibility of choledocholithiasis and/or cholecystitis with referred chest pain as opposed to abdominal pain. Chest x-ray per my read shows no acute process, specifically no pneumothorax or infiltrate. I will continue to trend his troponins, provide IV fluids for his LAURA, obtain CT of the chest abdomen pelvis in an attempt to find any potential etiology for his abnormal labs. Patient's repeat troponin remains negative. Unfortunately, I inadvertently ordered CT without contrast as opposed to CTA with. Discussed with patient and will send back to radiology for intended study. The noncontrast chest CT shows calcified granulomas and bronchiectatic changes but no infiltrate. Does have some atelectasis in the left lower lobe. CT scans with contrast with no acute findings. Repeat BMP after 2 L of fluid with normal sodium, creatinine and only slightly elevated BUN all suggesting dehydration. Patient is feeling better this morning. He does have primary care whom he may follow-up with. Be discharged home and encouraged to drink more fluids during the hot weather. Follow-up with primary care in the next week or two for recheck of labs and nonacute findings by CT. Return precautions provided. Medical Records Medical records reviewed: Yes I reviewed the patient's medical records. Medical records narrative: [facility] records from [facility] Imaging Data Radiologic Study: Attestation: I personally reviewed and interpreted this imaging study as follows: Imaging: X-Ray My impression: see [facility] Radiologic Study #2: Imaging: CT Scan Radiologist's impression: IMPRESSION: No acute infiltrates. Left lower lobe atelectasis. Thank you for allowing us to participate in the care of your patient. Dictated and Authenticated by: Cain Russell MD Radiologic Study #3: Imaging: CT Scan Radiologist's impression: IMPRESSION: 1. No acute findings to explain reported symptoms. 2. Nonacute findings as outlined above. 3. Additional studies dictated separately. 1. Thickening of the distal stomach likely secondary to underdistention. Gastritis or neoplasm not excluded but considered less likely. Follow-up if clinically warranted. 2. Additional findings as above. 3. Additional studies dictated separately. Thank you for allowing us to participate in the care of your patient. Dictated and Authenticated by: Cristin Olivo MD Lab Data Lab results reviewed: Yes I reviewed the patient's lab results. Lab results narrative: see [facility] ECG Data Attestation: I personally reviewed and interpreted this ECG (s) as follows: Prior ECG tracings: not available for review Interpretation: see EKG/MDM Quality:SDOH Health Related Social Needs: Health related social needs food insecurity transpo insecurity material hardship house/econ circumstance lonely/isolated Health related social needs details lacks secure housing and transportation. PFSH All Active Problems (Updated 02/09/25 @ 05:38 by Saji Davis MD) Elevated LFTs (Acute) Dehydration with hyponatremia (Acute) Chest pain (Acute) Fracture of scaphoid bone of wrist (Acute) Medical History Parkinson's disease Surgical History S/P deep brain stimulator placement Social History Smoking/Tobacco Use Status: Current every day Tobacco Type: cigarettes Years smoked: 38 Smoking risk assessment performed?: Yes Alcohol Intake: never Drug use: Occasionally Substance use type: marijuana Housing: homeless Do you feel safe at home: Yes Do you feel safe in your relationship?: Yes Additional Social history: In [facility].
[2025-02-09 00:34] LABS: Abs Immature Grans 0.06 10^3/uL (0.0-0.06); HCT 46.7 % (40.0-50.0); HGB 16.0 g/dL (13.5-17.5); Immature Grans % 0.3 %; MCH 29.7 pg (27.0-33.0); MCHC 34.3 % (32.0-36.0); MCV 87 fL (80-95); MPV 10.7 fL (8.0-11.0); Platelet Count 191 10^3/uL (130-400); RBC 5.39 10^6/uL (4.36-5.78); RDW 12.8 % (11.8-14.1); RDW-SD 40.1 fL; WBC 17.45 10^3/uL (4.4-10.8)
[2025-02-09] MEDS: Aspirin 81 MG CHEW 324 MG CH (00:37)
[2025-02-09] MEDS: nitroGLYcerin 0.4 MG TAB SL (00:37)
[2025-02-09 00:51] LABS: ALT 20 U/L (16-63); AST 237 U/L (15-37); Albumin 5.0 g/dL (3.4-5.0); Alkaline Phosphatase 71 U/L (46-116); Anion Gap 9.6 mmol/L (3-11); BUN 63 mg/dL (7-18); Bilirubin, Total 2.4 mg/dL (0.2-1.0); CO2 27.4 mmol/L (21.0-32.0); Calcium 9.6 mg/dL (8.5-10.1); Chloride 94 mmol/L (98-107); Estimated GFR 57.43 (mL/min/1.73m2); Glucose 102 mg/dL (74-106); Lipase 22 U/L (<78); Magnesium 2.4 mg/dL (1.8-2.4); Potassium 3.6 mmol/L (3.5-5.1); Sodium 131 mmol/L (136-145); Total Protein 8.5 g/dL (6.4-8.2); Troponin I 26 ng/L (<or=76)
--- NOTE | 2025-02-09 00:51 | DI.RAD_ITS ---
Exam(s) XR CHEST 2V PA LATERAL EXAM: XR CHEST 2V PA LATERAL CLINICAL HISTORY: Chest pain. TECHNIQUE: 2D digital imaging was performed. COMPARISON: CR,XR XR CHEST 2V PA LATERAL from 10/06/2024 FINDINGS: 2 views: Again noted is right-side neural stimulator Heart size is normal. The mediastinum is not widened. Most of previously present infiltrates which were evident on chest x-ray of 10/06/2024 have resolved. There are mild increased persistent markings in left lower lobe retrocardiac region, predominantly vascular markings.. Right lung is clear. No pleural effusions. IMPRESSION: Significant improvement when compared to 10/06/2024. There are still some increased markings in left lower lobe retrocardiac region. There are no pleural effusions. DATA REPOSITORY: RADIATION DOSE DELIVERED:
[2025-02-09 01:36] LABS: Troponin I 25 ng/L (<or=76)
--- NOTE | 2025-02-09 01:53 | DI.CT_ITS ---
Exam(s) CT CHEST WO EXAM: CT CHEST WO CLINICAL HISTORY: CP, elevated WBC and LFTs. TECHNIQUE: Multi planar reconstructions were performed. CONTRAST MATERIAL: None COMPARISON: CT CTA CHEST PULMONARY EMBOLISM W CONTRAST from 10/13/2024 FINDINGS: CHEST: LUNGS: The previously present bilateral infiltrates seen on CT scan of 10/13/2024 have resolved. There are minimal remaining increased markings in left lower lobe retrocardiac region which was the area most prominent infiltrate on the prior CT scan of October 2024. There does not appear to be prominent infiltrate at this level nor elsewhere in either lung field and there are no pleural effusions. Calcified granulomas are again noted in the right lung. MEDIASTINUM: There few calcified right hilar and right paratracheal lymph nodes. No significant lymphadenopathy. Visualized thyroid unremarkable.No obvious axillary adenopathy CARDIAC: Heart size is normal. There is no pericardial effusion.Caliber of the thoracic aorta is within normal limits. VISUALIZED UPPER ABDOMEN: No adrenal masses. Calcified granulomas in the spleen noted. OSSEOUS: No significant osseous lesions.No fractures.. IMPRESSION: 1. Significant improvement in the bilateral infiltrates which were evident on prior outside CT scan of 10/13/2024. Mild increased markings in left lower lobe remain which was the area of most prominent infiltrate on the prior CT scan. However, there is no prominent infiltrate at this level and there are no pleural effusions. 2. Calcified granulomas are noted in the right lung as are few benign calcified lymph nodes in the right hilum. 3. Other findings as above. Preliminary virtual Radiology report reviewed RADIATION DOSE DELIVERED: 219.58mGy.cm Total DLP DATA REPOSITORY: All CT scans at this facility are submitted to the National Radiology Data Registry (NRDR) Dose Index Registry (DIR) with the [employer] (ACR). RADIATION OPTIMIZATION: All CT scans at this facility use at least one of these dose optimization techniques: automated exposure control; mA and/or kV adjustment per patient size (includes targeted exams where dose is matched to clinical indication); or iterative reconstruction.
--- NOTE | 2025-02-09 02:06 | DI.VRAD_ITS ---
PROCEDURE INFORMATION: Exam: XR Chest Exam date and time: 02/09/2025 12:45 AM Age: 49 years old Clinical indication: Chest pressure; Prior surgery; Surgery date: 6+ months; Surgery type: Nerve stimulator; Chest pain TECHNIQUE: Imaging protocol: Radiologic exam of the chest. Views: 2 views. COMPARISON: CTA CHEST PULMONARY EMBOLISM W CONTRAST 10/13/2024 9:43 PM FINDINGS: Tubes, catheters and devices: Right vagal nerve stimulator. Lungs: Retrocardiac reticular opacities that might represent atelectasis versus infiltrates. Pleural spaces: Unremarkable. No pleural effusion. No pneumothorax. Heart/Mediastinum: Unremarkable. No cardiomegaly. Bones/joints: Unremarkable. IMPRESSION: Retrocardiac reticular opacities that might represent atelectasis versus infiltrates. Dictated and Authenticated by: Cain Russell MD. Orderin Ryan Lennon MD
--- NOTE | 2025-02-09 02:08 | DI.VRAD_ITS ---
PROCEDURE INFORMATION: Exam: CT Chest Without Contrast; Diagnostic Exam date and time: 02/09/2025 1:43 AM Age: 49 years old Clinical indication: Chest pressure; Prior surgery; Surgery date: 6+ months; Surgery type: Nerve stimulator; Elevated wbc and lfts, chest pain TECHNIQUE: Imaging protocol: Diagnostic computed tomography of the chest without contrast. 3D rendering (Not supervised by radiologist): MIP and/or 3D reconstructed images were created by the technologist. Radiation optimization: All CT scans at this facility use at least one of these dose optimization techniques: automated exposure control; mA and/or kV adjustment per patient size (includes targeted exams where dose is matched to clinical indication); or iterative reconstruction. COMPARISON: CTA CHEST PULMONARY EMBOLISM W CONTRAST 10/13/2024 9:43 PM FINDINGS: Tubes, catheters and devices: Right vagal nerve stimulator is seen. Lungs: Mild cystic changes in bilateral lung apices. Calcified granulomas in the posterior segment of the right upper lobe. Left lower lobe atelectasis. Mild diffuse bronchiectatic changes. Pleural spaces: Unremarkable. No pneumothorax. No pleural effusion. Heart: Unremarkable. No cardiomegaly. No pericardial effusion. Coronary arteries: There is mild atherosclerotic calcification of the coronary arteries. Lymph nodes: Calcified right hilar lymph nodes. Vasculature: Unremarkable. No aortic aneurysm. Spleen: There are multiple calcified granulomas of the spleen. Bones/joints: Unremarkable. No acute fracture. Soft tissues: Unremarkable. IMPRESSION: No acute infiltrates. Left lower lobe atelectasis. Dictated and Authenticated by: Cain Russell MD. Orderin Ryan Lennon MD
[2025-02-09] MEDS: Omnipaque 350 MG/ML 100 ML BTL 75 ML IJ (02:46)
[2025-02-09] MEDS: Normal Saline - Diluent 50 ML VIAL IJ (02:47)
--- NOTE | 2025-02-09 02:47 | DI.CT_ITS ---
Exam(s) CT CHEST PE ABD PELVIS W EXAM: CT CHEST PE ABD PELVIS W CLINICAL HISTORY: CP; elevated WBC and LFTs. TECHNIQUE: Imaging Protocol: Axial computed tomography images with coronal and sagittal reformatted images were created and reviewed. Computer aided detection (CAD) was utilized. CONTRAST MATERIAL: Intravenous: Omnipaque 350 Contrast volume:75 ml Oral: no COMPARISON: CT CT LUMBAR SPINE WO from 06/05/2024 CT CTA CHEST PULMONARY EMBOLISM W CONTRAST from 10/13/[address] CHEST WO from 02/09/2025 FINDINGS: CHEST: The exam is mildly limited by motion artifact. Examinations for evaluation for pulmonary embolism are performed in expiration which limits evaluation of the lungs. Pulmonary parenchyma: Limited evaluation due to significant expiratory changes. No consolidation. No dominant measurable mass. The lungs are much better inflated on the noncontrast exam performed earlier the same day. Tracheobronchial tree: There is very mild diffuse bronchiectasis. There is thickening of the wall of the posterior aspect of the right main bronchus which appears more prominent when compared with the noncontrast exam performed earlier the same day. This is likely secondary to expiratory changes. The findings likely represent secretions. The findings were not present on the November 01 exam. Pleura: No effusion or pneumothorax. Mediastinum: Within normal limits. Pulmonary arteries: No visible emboli. Cardiovascular: Minimal coronary artery calcifications. Heart size normal. No pericardial effusion. Thoracic aorta non-dilated. Atherosclerotic changes. Bones: Unremarkable for age. No lytic or blastic lesions.No compression fractures. Soft tissues: Electronic device over a right pectoral muscle with leads extending into the neck. ABDOMEN and PELVIS: Liver: Normal density. 13 millimeter hypodensity in the anterior liver appears unchanged from the October [address] Gallbladder and biliary tract: No evidence of stones or wall thickening. No biliary dilatation. Pancreas: Normal density, no abnormal calcifications or inflammatory process. Spleen: Normal. Kidneys: Normal size, contour and axis. No radiodense stones. No obstructive uropathy. No suspicious masses seen. Adrenal glands: No masses seen. Aorta: Abdominal portion non-dilated. Lymph nodes: Within normal limits. Soft tissues: Unremarkable. Bladder: Unremarkable. Bowel: No obstruction or bowel wall thickening. The appendix is normal. Normal quantity of stool. Peritoneal cavity: No ascites. No focal collection. No mesenteric inflammatory response. No free air. Bones: Unremarkable for age. Reproductive organs: Unremarkable for age. IMPRESSION: Thickening at the posterior right main bronchus likely represents secretions. No evidence of acute infiltrate or pulmonary emboli. There is no acute abnormality in the abdomen or pelvis. There is an 13 millimeter hypodensity in the liver. The preliminary [facility] report was reviewed. RADIATION DOSE DELIVERED: Total DLP DATA REPOSITORY: All CT scans at this facility are submitted to the National Radiology Data Registry (NRDR) Dose Index Registry (DIR) with the [employer] (ACR). RADIATION OPTIMIZATION: All CT scans at this facility use at least one of these dose optimization techniques: automated exposure control; mA and/or kV adjustment per patient size (includes targeted exams where dose is matched to clinical indication); or iterative reconstruction.
--- NOTE | 2025-02-09 03:12 | DI.VRAD_ITS ---
PROCEDURE INFORMATION: Exam: CTA Chest With Contrast Exam date and time: 02/09/2025 2:22 AM Age: 49 years old Clinical indication: Chest pressure; Prior surgery; Surgery date: 6+ months; Surgery type: Nerve stimulator; Chest pain, elevated wbc and lfts TECHNIQUE: Imaging protocol: Computed tomographic angiography of the chest with contrast. Exam focused on the arteries. 3D rendering (Not supervised by radiologist): MIP and/or 3D reconstructed images were created by the technologist. Radiation optimization: All CT scans at this facility use at least one of these dose optimization techniques: automated exposure control; mA and/or kV adjustment per patient size (includes targeted exams where dose is matched to clinical indication); or iterative reconstruction. Contrast material: [id number]; Contrast volume: 75 ml; Contrast route: INTRAVENOUS (IV); COMPARISON: CTA CHEST PULMONARY EMBOLISM W CONTRAST 10/13/2024 9:43 PM FINDINGS: Limitations: Motion artifact degrades image quality. Mild motion artifact. Pulmonary arteries: No pulmonary embolus is appreciated. Aorta: Atherosclerotic changes in the aorta and its branches. Lungs: Ground-glass opacities in the lungs, likely underinflation. Secretions versus neoplasm in the trachea and right mainstem and right lower lobe bronchi. Calcified right lung granuloma. Pleural spaces: No pleural effusion. Heart: No pericardial effusion. Lymph nodes: Nonspecific mediastinal and hilar lymph nodes. Intraperitoneal space: CT scan of the abdomen and pelvis dictated separately. Bones/joints: No acute pertinent abnormality seen. Soft tissues: No acute pertinent abnormality seen. IMPRESSION: 1. No acute findings to explain reported symptoms. 2. Nonacute findings as outlined above. 3. Additional studies dictated separately. PROCEDURE INFORMATION: Exam: CT Abdomen And Pelvis With Contrast Exam date and time: 02/09/2025 2:22 AM Age: 49 years old Clinical indication: Chest pressure; Prior surgery; Surgery date: 6+ months; Surgery type: Nerve stimulator; Chest pain, elevated wbc and lfts TECHNIQUE: Imaging protocol: Computed tomography of the abdomen and pelvis with contrast. Radiation optimization: All CT scans at this facility use at least one of these dose optimization techniques: automated exposure control; mA and/or kV adjustment per patient size (includes targeted exams where dose is matched to clinical indication); or iterative reconstruction. Contrast material: [id number]; Contrast volume: 75 ml; Contrast route: INTRAVENOUS (IV); COMPARISON: No relevant prior studies are available for comparison. FINDINGS: Lungs: CT scan of the chest dictated separately. Liver: Indeterminate hyperdense lesions in the liver measuring up to 1.9 cm. Consider follow-up. Gallbladder and biliary ducts: Sludge and/or calculi in the gallbladder. Pancreas: No CT evidence for acute pancreatitis. Spleen: Splenic granulomas. Adrenal glands: Adrenal thickening. Kidneys and ureters: No hydronephrosis or evidence for pyelonephritis. Stomach and bowel: Thickening of the distal stomach commensurate with underdistention. No intestinal obstruction is evident. Fluid in nondilated small bowel, nonspecific. Appendix: No evidence of appendicitis. Intraperitoneal space: No free air. Vasculature: Atherosclerotic changes in the aorta and its branches. Lymph nodes: Nonspecific mesenteric and retroperitoneal lymph nodes. Urinary bladder: Distended urinary bladder. Reproductive: No acute findings. Bones/joints: No pertinent acute abnormality seen. Soft tissues: No pertinent acute abnormality seen. IMPRESSION: 1. Thickening of the distal stomach likely secondary to underdistention. Gastritis or neoplasm not excluded but considered less likely. Follow-up if clinically warranted. 2. Additional findings as above. 3. Additional studies dictated separately. Dictated and Authenticated by: Cristin Olivo MD. Orderin Ryan Lennon MD
[2025-02-09 04:38] LABS: Anion Gap 12.2 mmol/L (3-11); BUN 46 mg/dL (7-18); CO2 23.8 mmol/L (21.0-32.0); Calcium 8.5 mg/dL (8.5-10.1); Chloride 100 mmol/L (98-107); Estimated GFR 106.01 (mL/min/1.73m2); Glucose 98 mg/dL (74-106); Potassium 3.8 mmol/L (3.5-5.1); Sodium 136 mmol/L (136-145)
== END 2025-02-09 05:51 | disposition home or self-care (01) ==
PROVIDERS: Emergency Provider Emergency Medicine
DX: R07.9 Chest pain, unspecified (principal); E86.0 Dehydration; E87.1 Hypo-osmolality and hyponatremia; R79.89 Other specified abnormal findings of blood chemistry
CPT/HCPCS: 99284; 99285; 36415; 71250; 71275; 74177; 80048; 80053; 83690; 93005; 96360; 96361; 71046; 83735; 84484; 85025; 93010; J3490

== ENCOUNTER 2025-02-14 01:40 | Outpatient (CLI) | payer MEDICAID, SELFPAY ==
--- NOTE | 2025-02-14 | DI.US_ITS ---
Exam(s) US ABDOMEN LIMITED EXAM: US ABDOMEN LIMITED CLINICAL HISTORY: Liver Lesion K76.9 [place] [facility] [place]NI[place]: Ultrasound abdomen performed using standard protocol. COMPARISON: CT CTA CHEST PULMONARY EMBOLISM W CONTRAST from 10/13/[address] CHEST PE ABD PELVIS W from 02/09/2025 FINDINGS: There is no ascites evident. LIVER: There 4 similar appearing well-defined hyperechoic lesions in the liver which have the appearance of cavernous hemangiomas. The largest of these measures 1.6 x 1.2 x 1.9 cm. Smallest measures 8 x 9 x 8mm. No cysts seen in the liver. No obvious neoplastic appearing lesions. GALLBLADDER/BILIARY: There are no gallstones. No gallbladder wall edema nor pericholecystic fluid. The common hepatic duct isnot dilated, measuring 2-3mm at the level of lori hepatis. PANCREAS: There is no evidence of pancreatic mass nor dilatation of the pancreatic duct. RIGHT KIDNEY:No evidence of solid mass, calculus, nor hydronephrosis. No cortical cysts evident. IMPRESSION: 1. No evidence of cholelithiasis nor dilatation of the biliary tree. 2. Therefore similar appearing well-defined hyperechoic lesions in the liver measuring up to 16 x 12 x 19 mm. These have the appearance of benign cavernous hemangiomas. Recommend follow-up ultrasound in 6 months to ensure stability. 3. No other right upper quadrant ultrasound findings and there is no ascites. DATA REPOSITORY:
== END 2025-02-14 02:00 ==
PROVIDERS: Visit Provider Student in an Organized Health Care Education/Training Program
DX: K76.9 Liver disease, unspecified (principal)
CPT/HCPCS: 76705

== ENCOUNTER 2025-02-14 17:23 | Emergency (ER) | payer MEDICAID, SELFPAY ==
[2025-02-14] VITALS (17 sets, daily range): BP systolic 120–137; BP diastolic 59–80; PULSE 80–99; RESP 16; TEMP 37.9; O2SAT 93–99
--- NOTE | 2025-02-14 18:15 | DI.CT_ITS ---
Exam(s) CT ABDOMEN PELVIS W EXAM: CT ABDOMEN PELVIS W CLINICAL HISTORY: R inguinal fullness, pain, sacral pain. TECHNIQUE: Imaging Protocol: Axial computed tomography images with coronal and sagittal reformatted images were created and reviewed CONTRAST MATERIAL: Noncontrast COMPARISON: CT CT CHEST PE ABD PELVIS W from 02/09/2025 FINDINGS: ABDOMEN and PELVIS: Lung Bases: No acute findings. Liver: Normal density. Stable hypodensity in lateral superior right lobe of the liver. No suspicious mass. Gallbladder and biliary tract: No radiodense calculus. No wall thickening or pericholecystic fluid. No biliary dilation. Pancreas: Normal density. No abnormal calcifications or inflammatory process. No evidence of mass. Spleen: Normal. Kidneys: Normal size, contour and axis. No radiodense stones. No obstructive uropathy. No suspicious masses seen. Adrenal glands: No masses seen. Vasculature: Abdominal aorta non-dilated. Soft tissues: Soft tissue inflammation at the level of the low sacrum just above the gluteal crease measuring approximately 3 cm. Some stranding in the fat is also noted in the inferior gluteal region bilaterally. Small fat containing left inguinal hernia. Bladder: No gross wall thickening. No calculi.No focal mass. Bowel: No obstruction. No bowel wall thickening. Peritoneal cavity: Small amount of pelvic fluid. No focal collection. No mesenteric inflammatory response. No free air. Bones: No evidence fracture or bony destruction. Reproductive organs: Unremarkable. Lymph nodes: Mildly enlarged inguinal and right external iliac nodes, likely reactive. IMPRESSION:: Focal 3 cm area of posterior midline soft tissue inflammation just above the level of the gluteal crease. Reactive right external iliac and inguinal lymph nodes. The preliminary [facility] report was reviewed. RADIATION DOSE DELIVERED: 409.31mGy.cm Total DLP DATA REPOSITORY: All CT scans at this facility are submitted to the National Radiology Data Registry (NRDR) Dose Index Registry (DIR) with the [employer] (A[employer]). RADIATION OPTIMIZATION: All CT scans at this facility use at least one of these dose optimization techniques: automated exposure control; mA and/or kV adjustment per patient size (includes targeted exams where dose is matched to clinical indication); or iterative reconstruction.
[2025-02-14 18:50] LABS: Abs Immature Grans 0.13 10^3/uL (0.0-0.06); HCT 40.4 % (40.0-50.0); HGB 13.7 g/dL (13.5-17.5); Immature Grans % 0.7 %; MCH 30.0 pg (27.0-33.0); MCHC 33.9 % (32.0-36.0); MCV 88 fL (80-95); MPV 10.3 fL (8.0-11.0); Platelet Count 236 10^3/uL (130-400); RBC 4.57 10^6/uL (4.36-5.78); RDW 12.4 % (11.8-14.1); RDW-SD 40.1 fL; WBC 17.93 10^3/uL (4.4-10.8)
--- NOTE | 2025-02-14 18:53 | W.ED.GENAD ---
Discharge Plan Disposition Patient Disposition: Home Condition: Stable Discharge Details Clinical Impression: Cyst, pilonidal, with abscess, Lymphadenopathy, Abrasion of sacral region Primary Care Provider: Unknown,Unknown ED Provider: Aurora Juan Home Meds and New Rx's Prescriptions: New amoxicillin-pot clavulanate 875-125 mg tablet 1 tab PO BID Qty: 20 0RF No Action carbidopa-levodopa 25-100 mg tablet 1 tab PO 12XD PRN Patient Comments: TAKE 1 AND 1/2 TABLETS BY MOUTH EVERY 1 TO 1 AND 1/2 HOURS NEEDED FOR PARKINSONS Rx Instructions: 1 tab orally; albuterol sulfate [Ventolin HFA] 90 mcg/actuation HFA aerosol inhaler 2 puff INHALATION Q4H PRN Patient Comments: INHALE 2 PUFFS BY MOUTH EVERY 4-6 HOURS NEEDED lidocaine [Lidoderm] 5 % adhesive patch,medicated 1 patch Topical Q24H Qty: 15 0RF ibuprofen 600 mg tablet 600 mg PO TID PRN (Reason: fever or pain) Qty: 15 0RF Discharge Instructions Instructions: Taking care of cuts, scrapes, and puncture wounds, Pilonidal Cyst (DC) Additional Instructions: As discussed your workup today showed that you have pilonidal cyst that has gotten inflamed or infected. You got a dose of antibiotic in the emergency department and a prescription for more antibiotics has been sent to your preferred pharmacy. Please follow-up with the surgery clinic. Please call their office in the morning to make an appointment. Take an [id number] probiotic while on the antibiotic. In the meantime if you do get worse or develop any new or concerning symptoms return to the emergency department otherwise follow-up in an outpatient basis. Referrals: Rajan Nuñez MD [ [facility] STAFF PHYSICIAN, Surgery] HPI General Date/Time Provider Initiated Documentation: 02/14/25 18:18. HPI Narrative: The patient is a 49-year-old male with a history of Parkinson's disease with deep brain stimulator who comes the emergency department for right groin pain, sacral pain. Reports that 3 days ago he slipped on an embankment and landed on his buttocks ripping his pants in the process. Reports that he is just been washing it at home and keeping an eye out. Reports that he had developed a wound on his buttock area and since this morning has developed pain along his right groin. Reports there is a firm mass in his right groin. Reports that he has been feeling cold also. Denies urinary symptoms with this. Denies any changes in bowel habits. Denies any loss of urine or bowel control. Denies any weakness, numbness or tingling sensation to bilateral lower extremities. Denies any chest pain or shortness of breath. Denies abdominal pain, nausea or vomiting but states his appetite has been poor. Reports that he did take ibuprofen prior to emergency room arrival because he was feeling so poorly and in pain and finally came to the emergency department for an evaluation. Related Data Home Medications ?Medication ?Instructions ?Recorded ?Confirmed albuterol sulfate 90 mcg/actuation 2 puff inhalation Q4H PRN 06/05/24 02/14/25 aerosol inhaler (Ventolin HFA) carbidopa 25 mg-levodopa 100 mg 1 tab PO 12XD PRN 06/05/24 02/14/25 tablet lidocaine 5 % topical patch 1 patch topical Q24H #15 ea 06/05/24 02/14/25 (Lidoderm) Held on 02/14/25. Instructions: Pt Stopped/Never Started ibuprofen 600 mg tablet 600 mg PO TID PRN fever or pain 10/06/24 02/14/25 #15 tabs amoxicillin 875 mg-potassium 1 tab PO BID #20 tabs 02/14/25 clavulanate 125 mg tablet Previous Rx's ?Medication ?Instructions ?Recorded lidocaine 5 % topical patch 1 patch topical Q24H #15 ea 06/05/24 (Lidoderm) Held on 02/14/25. Instructions: Pt Stopped/Never Started ibuprofen 600 mg tablet 600 mg PO TID PRN fever or pain 10/06/24 #15 tabs amoxicillin 875 mg-potassium 1 tab PO BID #20 tabs 02/14/25 clavulanate 125 mg tablet Allergies Allergy/AdvReac Type Severity Reaction Status Date / Time phenobarbital Allergy Severe Other (See Verified 02/14/25 17:26 Comment) General Stated Complaint: RashLesion MARILU: 3 Review of Systems Narrative: Review of systems are negative except as mentioned. Exam Narrative Exam Narrative: General appearance: The patient is alert, has no immediate need for airway protection and no signs of toxicity. HEENT: Oral mucosal membranes are moist. Respiratory: There are no retractions. Lungs are clear to auscultation. Cardiovascular: Regular in rate and rhythm. Radial pulses are intact and equal. Gastrointestinal: The abdomen is soft and nondistended with normal bowel sounds. Nontender to palpation throughout however he has a firm mass around the right inguinal region that is tender to palpation with guarding. Neurological: The patient is alert, awake and oriented x 3. Skin: The patient has an abrasion along the sacral, coccygeal area without active drainage or bleeding. There is no crepitus to this region. Back: The patient has sacral tenderness to palpation. He does not have any new or worsening midline lumbar or thoracic spine tenderness on exam. Extremities: No lower extremity edema or calf tenderness is noted to palpation bilaterally. The patient has equal dorsalis pedis pulses. Motor function to lower extremities are normal and symmetric bilaterally. Patient has normal sensation to all dermatomes to bilateral lower extremities. Patient has negative straight leg raise to 70 degrees bilaterally. The patient has intact and equal strength to bilateral thigh abduction, knee extension, ankle dorsiflexion, toes pointing up, knee flexion, toe plantarflexion. Course Vital Signs Vital signs: Vital Signs Temperature 37.9 C H 02/14/25 17:19 Pulse 92 H 02/14/25 17:19 Respiratory Rate 16 02/14/25 17:19 Blood Pressure 137/80 02/14/25 17:19 Pulse Oximetry 95 02/14/25 17:19 Temperature 37.9 C H 02/14/25 17:19 Temperature Source Tympanic 02/14/25 17:19 Pulse 92 H 02/14/25 17:19 Respiratory Rate 16 02/14/25 17:19 Blood Pressure 137/80 02/14/25 17:19 Blood Pressure Position Sitting 02/14/25 17:19 Pulse Oximetry 95 02/14/25 17:19 Oxygen Delivery Method Room Air 02/14/25 17:19 Oxygen Flow Rate 0 02/14/25 17:19 Pain Level 9 02/14/25 17:19 Lab/Test Results Lab/Test Results: 02/14/25 17:31 Blood Blood Culture - Pending 02/14/25 18:26 Blood Blood Culture - Pending Laboratory Tests Range/Units 02/14/25 17:31 WBC (4.4-10.8) 10^3/uL 17.93 H RBC (4.36-5.78) 10^6/uL 4.57 Hgb (13.5-17.5) g/dL 13.7 Hct (40.0-50.0) % 40.4 MCV (80-95) fL 88 MCH (27.0-33.0) pg 30.0 MCHC (32.0-36.0) % 33.9 RDW (11.8-14.1) % 12.4 Plt Count (130-400) 10^3/uL 236 MPV (8.0-11.0) fL 10.3 Immature Gran % % 0.7 Neutrophils % % 84.5 Lymphocytes % % 7.7 Monocytes % % 6.6 Eosinophils % % 0.2 Basophils % % 0.3 Nucleated RBC % (0.0-0.3) % 0.0 Absolute Neutrophils (1.2-6.7) 10^3/uL 15.15 H Absolute Lymphocytes (1.2-3.4) 10^3/uL 1.38 Absolute Monocytes (0.1-0.8) 10^3/uL 1.18 H Absolute Eosinophils (0.0-0.7) 10^3/uL 0.04 Absolute Basophils (0.0-0.2) 10^3/uL 0.05 Medical Decision Making Septic workup has been started on this patient. I have also ordered IV Tylenol and ordered imaging study of the abdomen and pelvis. The patient's blood work is back. He does have white blood cell count elevation however this is not truly elevated. This was also elevated on most recent blood work through [employer]. Chemistries are benign and lactic acid is within normal limits. Urine is negative for infectious process. CAT scan is finally resulted and patient is found to have concern for changes concerning for inflamed or infected pilonidal cyst and right iliac inguinal lymphadenopathy. There is no fracture identified. I updated the patient on workup result and of plan for oral antibiotic now and a prescription for the next few days. He will get dressing overlying his abrasion on the sacral area. I ask him to follow-up with surgery. I asked him to call the office tomorrow to make an appointment. He is asked to keep the sacral wound clean and dry. I told him if this gets worse return to the emergency department immediately and in fact if he does develop any new or worsening symptoms return to the emergency department immediately. I do have blood cultures that are pending. I told him we will give them a call if these come back positive for anything. Patient is to be discharged shortly. Imaging Data Radiologic Study: Imaging: CT Scan (CT abdomen and pelvis) Radiologist's impression: 1. Approximately 2 x 2 x 2 cm presacral subcutaneous and dermal lesion, suggesting an inflamed or infected pilonidal cyst. Right iliac and inguinal lymphadenopathy could be reactive to this. 2. Trace free fluid in the rectovesical space. 3. Probable minor dysmotility of jejunum. 4. Incidental findings as described. Quality:SDOH Health Related Social Needs: Health related social needs food insecurity transpo insecurity material hardship house/econ circumstance lonely/isolated Health related social needs details lacks secure housing and transportation. PFSH All Active Problems (Updated 02/14/25 @ 21:06 by Aurora Juan DO) Abrasion of sacral region (Acute) Lymphadenopathy (Acute) Cyst, pilonidal, with abscess (Acute) No-show for appointment (Acute) Elevated LFTs (Acute) Dehydration with hyponatremia (Acute) Chest pain (Acute) Fracture of scaphoid bone of wrist (Acute) Medical History Parkinson's disease Surgical History S/P deep brain stimulator placement Social History Smoking/Tobacco Use Status: Current every day Tobacco Type: cigarettes Years smoked: 38 Smoking risk assessment performed?: Yes Alcohol Intake: never Drug use: Occasionally Substance use type: marijuana Housing: homeless Do you feel safe at home: Yes Do you feel safe in your relationship?: Yes Additional Social history: In [facility].
[2025-02-14 19:07] LABS: ALT 17 U/L (16-63); AST 21 U/L (15-37); Albumin 3.9 g/dL (3.4-5.0); Alkaline Phosphatase 90 U/L (46-116); Anion Gap 11.1 mmol/L (3-11); BUN 7 mg/dL (7-18); Bilirubin, Total 0.8 mg/dL (0.2-1.0); CO2 25.9 mmol/L (21.0-32.0); Calcium 8.9 mg/dL (8.5-10.1); Chloride 99 mmol/L (98-107); Estimated GFR 119.82 (mL/min/1.73m2); Glucose 87 mg/dL (74-106); Potassium 3.6 mmol/L (3.5-5.1); Sodium 136 mmol/L (136-145); Total Protein 7.5 g/dL (6.4-8.2)
[2025-02-14] MEDS: ACETAMINOPHEN 1,000 MG/100 ML BAG 400 MG IVPB (19:17)
[2025-02-14] MEDS: Normal Saline 1,000 ML 1000 ML IV (19:18)
[2025-02-14] MEDS: Omnipaque 350 MG/ML 100 ML BTL IJ (19:50)
[2025-02-14] MEDS: Normal Saline Flush 10 ML SYR IVP (19:51)
[2025-02-14] MEDS: Normal Saline - Diluent 50 ML VIAL IJ (19:52)
[2025-02-14 20:14] LABS: Glucose Negative (Negative)
--- NOTE | 2025-02-14 20:26 | DI.[facility]_ITS ---
PROCEDURE INFORMATION: Exam: CT Abdomen And Pelvis With Contrast Exam date and time: 02/14/2025 7:49 PM Age: 49 years old Clinical indication: Other: Back pain; R inguinal fullness, pain, sacral pain TECHNIQUE: Imaging protocol: Computed tomography of the abdomen and pelvis with contrast. Radiation optimization: All CT scans at this facility use at least one of these dose optimization techniques: automated exposure control; mA and/or kV adjustment per patient size (includes targeted exams where dose is matched to clinical indication); or iterative reconstruction. Contrast material: OMNIPAQUE 350; Contrast volume: 75 ml; Contrast route: INTRAVENOUS (IV); COMPARISON: No relevant prior studies available. FINDINGS: Lungs: Patchy densities in the right middle lobe, particularly on coronal imaging favoring linear subsegmental atelectasis. Mild bibasilar bronchiectasis. Liver: Indeterminate small right hepatic lesion intermediate in density. Follow-up as per institutional protocol. Gallbladder and biliary ducts: No calcified stones. No gross ductal dilation. Pancreas: No ductal dilation. No mass . Spleen: Small splenic calcifications compatible with benign granulomata. No splenomegaly. Adrenal glands: No suspicious mass. Kidneys and ureters: No hydronephrosis. No masses. Stomach and bowel: A few left-sided small bowel air-fluid levels with mildly distended jejunal loops however no wall thickening or focal transition point. Appendix: No evidence of appendicitis. Intraperitoneal space: Trace free fluid in the rectovesical space. No abscess or free air. Vasculature: No abdominal aortic aneurysm. Lymph nodes: 10 mm right inguinal lymph node upper limits of normal, with mild surrounding edema, additional smaller right inguinal lymph nodes mildly prominent in number. Mild right external iliac adenopathy. Urinary bladder: The urinary bladder is distended. No urinary bladder wall thickening. Reproductive: Unremarkable as visualized. Bones/joints: No acute fracture or subluxation. Soft tissues: Small fat-containing left inguinal hernia. Minor infiltration of gluteal subcutaneous fat [id number] without fluid collections. Slight fullness of the anus. Slightly poorly defined somewhat hazy 2 x 2 x 2 cm presacral subcutaneous and dermal inflammation, faint peripheral enhancement. IMPRESSION: 1. Approximately 2 x 2 x 2 cm presacral subcutaneous and dermal lesion, suggesting an inflamed or infected pilonidal cyst. Right iliac and inguinal lymphadenopathy could be reactive to this. 2. Trace free fluid in the rectovesical space. 3. Probable minor dysmotility of jejunum. 4. Incidental findings as described. Dictated and Authenticated by: Shy Aranda MD. Orderin Drake Simon MD
[2025-02-14] MEDS: Amoxicillin 875/Clav. 125 TAB PO (21:12)
== END 2025-02-14 21:22 | disposition home or self-care (01) ==
PROVIDERS: Emergency Provider Emergency Medicine
DX: S30.810A Abrasion of lower back and pelvis, initial encounter (principal); L05.01 Pilonidal cyst with abscess; R59.1 Generalized enlarged lymph nodes; W01.0XXA Fall on same level from slipping, tripping and stumbling without subsequent striking against object, initial encounter; Z59.811 Housing instability, housed, with risk of homelessness; Z59.87 Material hardship due to limited financial resources, not elsewhere classified; Z59.41 Food insecurity
CPT/HCPCS: 80053; 87040; 96365; 99285; 74177; 81003; 83605; 85025; 99284; J0131; J3490